=== PATIENT | male | born 1955 | race Caucasian/White ===

== ENCOUNTER 2018-01-09 11:00 | Emergency (ER) | payer MEDICAID ==
[~2018-01-09] VITALS: Ht 177.8 cm; Wt 99.8 kg
[2018-01-09 11:00] VITALS: BP 120/72
== END 2018-01-09 11:55 | disposition home or self-care (01) ==
LOC: ER 11:02
DX: S63.602A Unspecified sprain of left thumb, initial encounter (principal); I10 Essential (primary) hypertension; Z60.2 Problems related to living alone; X58.XXXA Exposure to other specified factors, initial encounter; Y93.89 Activity, other specified; Y92.89 Other specified places as the place of occurrence of the external cause; Y99.8 Other external cause status
CPT/HCPCS: 29125; 73130; 99284; A4606; Z7610